=== PATIENT | male | born 1995 | race African-American/Black ===

== ENCOUNTER 2017-10-28 23:17 | Emergency (ER) | payer OTHER ==
[~2017-10-28] VITALS: Ht 180.3 cm; Wt 74.8 kg
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
[2017-10-29 00:15] VITALS: BP 0/0
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
== END 2017-10-29 00:15 | disposition home or self-care (01) ==
LOC: ER 23:22
DX: S02.2XXA Fracture of nasal bones, initial encounter for closed fracture (principal); Y04.8XXA Assault by other bodily force, initial encounter
CPT/HCPCS: 70160; 99283